=== PATIENT | male | born 1980 | race Asian ===

== ENCOUNTER 2018-04-28 20:10 | Emergency (ER) | payer OTHER ==
[~2018-04-28] VITALS: Ht 162.6 cm; Wt 81.6 kg
[2018-04-28 20:52] LABS: PLATELET COUNT 271 K/uL (142-355)
[2018-04-28 21:03] LABS: POTASSIUM 3.9 mmol/L (3.6-5.2)
[2018-04-28 21:41] VITALS: BP 129/95; TEMP 97.6
== END 2018-04-28 21:47 | disposition home or self-care (01) ==
LOC: ED 20:10
PROVIDERS: Family Medicine
DX: M79.18 Myalgia, other site (principal); X50.3XXA Overexertion from repetitive movements, initial encounter
CPT/HCPCS: 36415; 80053; 84550; 85027; 99282